=== PATIENT | female | born 1955 | race Caucasian/White ===

== ENCOUNTER 2018-06-03 19:55 | Emergency (ER) | END 2018-06-04 00:33 | disposition home or self-care (01) ==

== ENCOUNTER 2019-03-30 18:18 | Emergency (ER) | payer OTHER ==
[~2019-03-30] VITALS: Ht 157.5 cm; Wt 81.8 kg
[~2019-03-30 18:18] MED LIST: ASPI-817 PO; ATOR40TA68 PO; CHOL100062 PO; LEVO50TA7 PO; OXYB5SYR2 PO; OXYB5TAB7 PO; PROP150T2 PO
[2019-03-30 18:32] VITALS: Ht 157.5 cm; Wt 81.8 kg
[2019-03-30 21:30] VITALS: BP 140/65; PULSE 88; RESP 20
--- NOTE | 2019-03-30 22:14 | ERD ---
ER Documentation Chief Complaint Chief Complaint epigastric burning x a month; cotton ball in her ear x 10 days HPI 63-year-old female presenting with multiple complaints including discomfort in her left ear. She feels like there may be some cotton stuck in her ear as she uses Q-tips. She states that she went to an ENT physician a few weeks ago and was prescribed Cipro otic for possible infection. However she feels like this d id not help her. Her family is very concerned that something is stuck in her ear and would like me to take it out. Additionally she complains of epigastric discomfort that she describes as "pain" and cannot describe any further. The pain is constant, going on for about 2 to 3 weeks, worse with eating, with no alleviating factors. Pain is nonradiating, no associated nausea or vomiting, no associated melena or hematochezia. No chest pain or shortness of breath. ROS All systems reviewed and are negative except as per history of present illness. Medications Home Meds Reported Medications Cholecalciferol* (Vitamin D3*) 1,000 Unit Tablet, 1000 UNIT PO DAILY, TAB 06/03/18 Oxybutynin Chloride* (Ditropan*) 5 Mg Tab, 5 MG PO TID, TAB 06/03/18 Oxybutynin Chloride* (Oxybutynin Chloride*) 5 Mg/5 Ml Syrup, 5 MG PO TID, ML 06/03/18 Aspirin* (Aspirin* EC) 81 Mg Tablet.dr, 81 MG PO DAILY, TAB 06/03/18 Atorvastatin* (Atorvastatin*) 40 Mg Tablet, 40 MG PO QHS, #30 TAB 06/03/18 Propafenone Hcl* (Propafenone Hcl*) 150 Mg Tablet, 150 MG PO TID, TAB 06/03/18 Levothyroxine Sodium* (Levothyroxine Sodium*) 50 Mcg Tablet, 50 MCG PO BEFORE BREAKFAST, #30 TAB 06/03/18 Allergies Allergies: Coded Allergies: No Known Drug Allergies (Verified Allergy, Unknown, 06/03/18) PMhx/Soc History of Surgery: Yes (hysterectomy) Hx Miscellaneous Medical Probl: Yes (hypothyroidism, htn) Hx Alcohol Use: No Hx Substance Use: No Hx Tobacco Use: No Smoking Status: Never smoker FmHx Family History: No diabetes Physical Exam Vitals Vital Signs Date Temp Pulse Resp B/P (MAP) Pulse Ox O2 O2 Flow FiO2 Time Delivery Rate 03/30/19 98.9 88 20 140/65 99 Room Air 21:30 (90) 03/30/19 98.6 60 18 147/73 95 18:32 (97) Physical Exam Const: No acute distress Head: Atraumatic Eyes: Normal Conjunctiva ENT: Normal External Ears, Nose and Mouth. TMs normal bilaterally. External canals normal bilaterally, other than a small area of white substance in the le ft external canal that is hard, seems to be some sort of calcification. However the ear canal is patent Neck: Full range of motion. No meningismus. Resp: Clear to auscultation bilaterally Cardio: Regular rate and rhythm, no murmurs Abd: Soft, mild epigastric tenderness without rebound or guarding, non distended. Normal bowel sounds Skin: No petechiae or rashes Back: No midline or flank tenderness Ext: No cyanosis, or edema Neur: Awake and alert Psych: Normal Mood and Affect Result Diagram: 03/30/19204803/30/192048 Results 24 hrs Laboratory Tests Test 03/30/19 20:49 White Blood Count 6.9 10^3/ul Red Blood Count 4.59 10^6/ul Hemoglobin 12.1 g/dl Hematocrit 38.4 % Mean Corpuscular Volume 83.7 fl Mean Corpuscular Hemoglobin 26.4 pg Mean Corpuscular Hemoglobin Concent 31.5 g/dl Red Cell Distribution Width 13.8 % Platelet Count 197 10^3/UL Mean Platelet Volume 10.1 fl Immature Granulocytes % 0.300 % Neutrophils % 51.1 % Lymphocytes % 35.5 % Monocytes % 9.7 % Eosinophils % 2.7 % Basophils % 0.7 % Nucleated Red Blood Cells % 0.0 /100WBC Immature Granulocytes # 0.020 10^3/ul Neutrophils # 3.5 10^3/ul Lymphocytes # 2.5 10^3/ul Monocytes # 0.7 10^3/ul Eosinophils # 0.2 10^3/ul Basophils # 0.1 10^3/ul Nucleated Red Blood Cells # 0.0 10^3/ul Sodium Level 145 mmol/L Potassium Level 4.5 mmol/L Chloride Level 107 mmol/L Carbon Dioxide Level 29 mmol/L Anion Gap 9 Blood Urea Nitrogen 24 mg/dl Creatinine 0.71 mg/dl Est Glomerular Filtrat Rate mL/min > 60 mL/min Glucose Level 116 mg/dl Calcium Level 9.5 mg/dl Total Bilirubin 0.4 mg/dl Direct Bilirubin 0.00 mg/dl Indirect Bilirubin 0.4 mg/dl Aspartate Amino Transf (AST/SGOT) 18 IU/L Alanine Aminotransferase (ALT/SGPT) 34 IU/L Alkaline Phosphatase 96 IU/L Total Protein 7.6 g/dl Albumin 4.4 g/dl Globulin 3.20 g/dl Albumin/Globulin Ratio 1.37 Lipase 107 U/L Procedures/MDM EMERGENT LABS AND DIAGNOSTIC STUDIES: Lab Results above were reviewed and interpreted by me. CBC: no anemia or evidence of infection CMP: No evidence of clinically significant electrolyte abnormality, acidosis, renal failure, hypoglycemia, liver disease, or biliary obstruction Lipase: no evidence of pancreatitis Radiology Results as interpreted by Radiology below were reviewed by Jessica Martinez MD: Ultrasound right upper quadrant shows no significant abnormalities Initial Nursing notes reviewed. Previous Medical Records requested via the Electronic Health Record. EMERGENCY DEPARTMENT COURSE / MEDICAL DECISION MAKING: Patient is presenting with epigastric abdominal pain of unclear etiology. Based on my exam and work-up, I have a low suspicion for biliary colic, biliary obstruction, acute cholecystitis, pancreatitis, hepatitis, lower lobe pneumonia, gastritis, colitis, cardiac pathology, aortic dissection, ureterolithiasis, pyelonephritis. Labs were ordered to evaluate for above and were unremarkable. Ultrasound of the abdomen ordered to evaluate gallbladder and showed no acute pathology. With regard to her earache, there is no evidence of otitis media or externa. I attempted to remove the white substance but it is calcified and hard and difficult to remove. Ear lavage was performed without any improvement. There does not seem to be a medical emergency here so I recommended the patient follow-up with her ENT physician for further work-up and management. Patient's blood pressure was elevated (>120/80) but appears stable without evidence of hypertensive emergency or urgency. The patient was counseled about the risks of hypertension and urged to pursue outpatient monitoring and therapy within a week with their primary care physician. Departure Diagnosis: Primary Impression: Earache, left Additional Impression: Epigastric abdominal pain Condition: Stable Patient Instructions: Earache W/O Infection (Adult), Epigastric Pain (Uncertain Cause) PRISCILLA MARTINEZ MD March 30, 2019 22:14
== END 2019-03-31 04:18 | disposition home or self-care (01) ==
LOC: E/R 18:18
DX: R10.13 Epigastric pain (principal); H92.02 Otalgia, left ear; I10 Essential (primary) hypertension; E03.9 Hypothyroidism, unspecified; Z79.82 Long term (current) use of aspirin
CPT/HCPCS: 36415; 71045; 76705; 80053; 83690; 85025; Z7502; Z7610